=== PATIENT | female | born 1970 | race Caucasian/White ===

== ENCOUNTER 2023-09-19 22:49 | Emergency (ER) | payer MEDICAID, OTHER ==
[~2023-09-19] VITALS: Ht 165.1 cm; Wt 84.1 kg
[2023-09-19 22:56] VITALS: TEMP 97.5
[2023-09-19] MEDS ORDERED: LEVO137T2 PO (23:06)
[2023-09-19 23:47] LABS: HEMOGLOBIN 13.1 g/dL (12.0-16.0); LYMPHOCYTES # (AUTO) 1.9 K/uL (1.0-4.8); NEUTROPHILS # (AUTO) 6.3 K/uL (1.8-7.7); NEUTROPHILS % (AUTO) 68.3 % (40.0-70.0)
[2023-09-19 23:51] LABS: BASOPHILS % (AUTO) 0.9 % (0.0-2.0); EOSINOPHILS % (AUTO) 4.1 % (1.0-6.0); HEMATOCRIT 37.2 % (36-46); LYMPHOCYTES % (AUTO) 20.5 % (22.0-44.0); MEAN CORPUSCULAR HEMOGLOBIN 30.9 pg (26.0-34.0); MEAN CORPUSCULAR HGB CONC 35.2 G/dL (31.0-37.0); MEAN CORPUSCULAR VOLUME 88 fL (80-100); MONOCYTES # (AUTO) 0.6 K/uL (0.1-1.0); MONOCYTES % (AUTO) 6.2 % (2.0-9.0); PLATELET COUNT (AUTO) 329 K/uL (150-450); RED BLOOD CELL COUNT(AUTO) 4.24 MIL/uL (4.00-5.20); RED CELL DISTRIBUTION WIDTH 12.6 % (11.5-14.5); WHITE BLOOD COUNT (AUTO) 9.2 K/uL (4.5-11.0)
[2023-09-20 00:15] LABS: ANION GAP 6 mmol/L (8-16); CARBON DIOXIDE 27 mmol/L (22-29); CHLORIDE 106 mmol/L (98-107); CREATININE 0.72 mg/dL (0.60-1.30); GLOMERULAR FILTR. RATE CALC > 60 mL/min (>60); GLUCOSE,RANDOM 122 mg/dL (70-110); POTASSIUM 4.1 mmol/L (3.5-5.1); SODIUM SERUM 139 mmol/L (136-145); UREA NITROGEN, BLOOD 11 mg/dL (7-18)
[2023-09-20] MEDS ORDERED: FentaNYL CITRATE PF 100 MCG/2 ML VIAL IVP ONE (00:15)
[2023-09-20] MEDS ORDERED: ONDANSETRON HCL 4 MG/2 ML VIAL IVP ONE (00:15)
[2023-09-20] MEDS ORDERED: SODIUM CHLORIDE 0.9% 1,000 ML IV ONE (00:15)
[2023-09-20 00:21] LABS: ALANINE AMINOTRANSFERASE 330 U/L (12-78); ALBUMIN 3.5 g/dL (3.4-5.0); ALKALINE PHOSPHATASE 150 U/L (46-116); ASPARTATE AMINOTRANSFERASE 229 U/L (15-37); BILIRUBIN,TOTAL 0.5 mg/dL (0.1-1.0); LIPASE 31 U/L (16-77); TOTAL PROTEIN, SERUM 7.4 g/dL (6.4-8.2)
[2023-09-20 00:22] LABS: TROPONIN I-HIGH SENSITIVITY Less Than 4 ng/L (<51)
[2023-09-20 00:56] LABS: APPEARANCE,URINE CLEAR (CLEAR); BILIRUBIN,URINE NEGATIVE (NEGATIVE); COLOR,URINE LIGHT YELLOW (YELLOW); GLUCOSE, URINE (UA) NEGATIVE (NEGATIVE); KETONES,URINE NEGATIVE (NEGATIVE); LEUKOCYTE ESTERASE ,URINE NEGATIVE (NEGATIVE); NITRATE,URINE NEGATIVE (NEGATIVE); OCCULT BLOOD,URINE NEGATIVE (NEGATIVE); PROTEIN,URINE NEGATIVE (NEGATIVE); SPECIFIC GRAVITIY, URINE 1.015 (1.003-1.030); UROBILINOGEN,URINE <=1.0 mg/dL (<=1.0)
[2023-09-20] MEDS ORDERED: POLY17PO47 PO (04:58)
[2023-09-20] MEDS ORDERED: NA P133E4 PR (04:58)
[2023-09-20 05:00] VITALS: BP 130/79; PULSE 72; RESP 17
[2023-09-20] MEDS ORDERED: POLY238P PO (20:18)
== END 2023-09-20 06:05 | disposition home or self-care (01) ==
LOC: EMS 22:50
DX: K59.00 Constipation, unspecified (principal); E78.00 Pure hypercholesterolemia, unspecified; I10 Essential (primary) hypertension; E03.9 Hypothyroidism, unspecified; Z90.710 Acquired absence of both cervix and uterus; Z98.890 Other specified postprocedural states
CPT/HCPCS: 99285; 80053; 81003; 83690; 84484; 85025; 36415; 93005; 74176; 96374; 96361; 96375; J3010; J2405; J7030

== ENCOUNTER 2023-09-20 16:31 | Emergency (ER) | payer OTHER ==
[~2023-09-20] VITALS: Ht 165.1 cm; Wt 84.0 kg
[~2023-09-20 16:31] MED LIST: LEVO137T2 PO; NA P133E4 PR; POLY17PO47 PO
[2023-09-20 16:34] VITALS: TEMP 98.1
[2023-09-20 18:07] LABS: BASOPHILS % (AUTO) 0.3 % (0.0-2.0); EOSINOPHILS % (AUTO) 1.8 % (1.0-6.0); HEMATOCRIT 40.9 % (36-46); LYMPHOCYTES # (AUTO) 1.1 K/uL (1.0-4.8); LYMPHOCYTES % (AUTO) 8.1 % (22.0-44.0); MEAN CORPUSCULAR HEMOGLOBIN 30.7 pg (26.0-34.0); MEAN CORPUSCULAR HGB CONC 34.2 G/dL (31.0-37.0); MEAN CORPUSCULAR VOLUME 90 fL (80-100); MONOCYTES # (AUTO) 0.6 K/uL (0.1-1.0); MONOCYTES % (AUTO) 4.2 % (2.0-9.0); NEUTROPHILS # (AUTO) 11.7 K/uL (1.8-7.7); NEUTROPHILS % (AUTO) 85.6 % (40.0-70.0); PLATELET COUNT (AUTO) 320 K/uL (150-450); RED BLOOD CELL COUNT(AUTO) 4.56 MIL/uL (4.00-5.20); RED CELL DISTRIBUTION WIDTH 12.8 % (11.5-14.5); WHITE BLOOD COUNT (AUTO) 13.6 K/uL (4.5-11.0)
[2023-09-20] MEDS ORDERED: HYDROmorphone HCL 2 MG/ML SYRINGE IM ONE (18:15)
[2023-09-20] MEDS ORDERED: ONDANSETRON HCL 4 MG/2 ML VIAL IM ONE (18:15)
[2023-09-20 18:22] LABS: ANION GAP 10 mmol/L (8-16); CALCIUM, TOTAL 9.3 mg/dL (8.8-10.5); CARBON DIOXIDE 24 mmol/L (22-29); CHLORIDE 106 mmol/L (98-107); CREATININE 0.81 mg/dL (0.60-1.30); GLOMERULAR FILTR. RATE CALC > 60 mL/min (>60); GLUCOSE,RANDOM 110 mg/dL (70-110); POTASSIUM 3.9 mmol/L (3.5-5.1); SODIUM SERUM 140 mmol/L (136-145); UREA NITROGEN, BLOOD 9 mg/dL (7-18)
[2023-09-20 18:23] LABS: PLATELET MORPHOLOGY COMMENT LARGE PLTS PRESENT; RBC MORPHOLOGY COMMENT NORMAL RBC MORPH
[2023-09-20 18:27] LABS: TROPONIN I-HIGH SENSITIVITY Less Than 4 ng/L (<51)
[2023-09-20 18:28] LABS: ALANINE AMINOTRANSFERASE 299 U/L (12-78); ALBUMIN 3.5 g/dL (3.4-5.0); ALKALINE PHOSPHATASE 131 U/L (46-116); ASPARTATE AMINOTRANSFERASE 156 U/L (15-37); BILIRUBIN,TOTAL 0.5 mg/dL (0.1-1.0); LIPASE 27 U/L (16-77); TOTAL PROTEIN, SERUM 7.5 g/dL (6.4-8.2)
[2023-09-20] MEDS ORDERED: SODIUM PHOSPHATE,MONO-DIBASIC 133 ML ENEMA PR ONE (19:30)
[2023-09-20 20:13] VITALS: BP 146/70; PULSE 78; RESP 16
[2023-09-20] MEDS ORDERED: POLY238P PO (20:18)
== END 2023-09-20 20:30 | disposition home or self-care (01) ==
LOC: EMS 16:32
DX: R10.84 Generalized abdominal pain (principal); K59.00 Constipation, unspecified; K76.0 Fatty (change of) liver, not elsewhere classified; R79.89 Other specified abnormal findings of blood chemistry; E78.00 Pure hypercholesterolemia, unspecified; I10 Essential (primary) hypertension; E03.9 Hypothyroidism, unspecified; Z90.710 Acquired absence of both cervix and uterus; Z98.890 Other specified postprocedural states
CPT/HCPCS: 99284; 80053; 83690; 84484; 85025; 36415; 96372; J1170; J2405

== ENCOUNTER 2024-09-14 08:01 | Inpatient (IN) | payer SELFPAY ==
[~2024-09-14] VITALS: Ht 165.1 cm; Wt 90.3 kg
[~2024-09-14 08:01] MED LIST changes: +POLY238P PO
[2024-09-14] MEDS ORDERED: [UNRECOGNIZED DRUG - OTHER] PO (08:10)
[2024-09-14] MEDS ORDERED: CEFT1VIA65 IM (08:10)
[2024-09-14] MEDS ORDERED: 0.9% SODIUM CHLORIDE 10 ML SYRINGE IVP PRN (08:15)
[2024-09-14] MEDS ORDERED: IOHEXOL 350 MG/ML 100 ML VIAL ONE (08:40)
[2024-09-14] MEDS ORDERED: SODIUM CHLORIDE 0.9% 100 ML ONE (08:40)
[2024-09-14 08:43] LABS: BASOPHILS % (AUTO) 0.2 % (0.0-2.0); EOSINOPHILS % (AUTO) 1.5 % (1.0-6.0); HEMATOCRIT 39.5 % (36-46); LYMPHOCYTES # (AUTO) 0.6 K/uL (1.0-4.8); LYMPHOCYTES % (AUTO) 9.8 % (22.0-44.0); MEAN CORPUSCULAR HEMOGLOBIN 30.6 pg (26.0-34.0); MEAN CORPUSCULAR HGB CONC 35.5 G/dL (31.0-37.0); MEAN CORPUSCULAR VOLUME 86 fL (80-100); MONOCYTES # (AUTO) 0.6 K/uL (0.1-1.0); MONOCYTES % (AUTO) 9.3 % (2.0-9.0); NEUTROPHILS # (AUTO) 4.8 K/uL (1.8-7.7); NEUTROPHILS % (AUTO) 79.2 % (40.0-70.0); PLATELET COUNT (AUTO) 264 K/uL (150-450); RED BLOOD CELL COUNT(AUTO) 4.58 MIL/uL (4.00-5.20); RED CELL DISTRIBUTION WIDTH 12.5 % (11.5-14.5)
[2024-09-14 08:52] LABS: ANION GAP 11 mmol/L (8-16); CALCIUM, TOTAL 8.8 mg/dL (8.8-10.5); CARBON DIOXIDE 25 mmol/L (22-29); CHLORIDE 103 mmol/L (98-107); CREATININE 0.83 mg/dL (0.60-1.30); GLOMERULAR FILTR. RATE CALC > 60 mL/min (>60); GLUCOSE,RANDOM 119 mg/dL (70-110); POTASSIUM 3.7 mmol/L (3.5-5.1); SODIUM SERUM 139 mmol/L (136-145); UREA NITROGEN, BLOOD 14 mg/dL (7-18)
[2024-09-14] MEDS: ACETAMINOPHEN 1000 MG/ISO-OSM 100 ML IV ONE (08:57)
[2024-09-14] MEDS: KETOROLAC TROMETHAMINE 30 MG/ML VIAL IVP ONE (08:58)
[2024-09-14] MEDS: ONDANSETRON HCL 4 MG/2 ML VIAL IVP ONE (08:58)
[2024-09-14 08:59] LABS: LACTIC ACID 0.7 mmol/L (0.4-2.0)
[2024-09-14] MEDS: SODIUM CHLORIDE 0.9% 2,600 ML IV ONE (08:59)
[2024-09-14] MEDS: FAMOTIDINE 20 MG/2 ML VIAL IVP ONE (08:59)
[2024-09-14 09:08] LABS: TROPONIN I-HIGH SENSITIVITY Less Than 4 ng/L (<51)
[2024-09-14 09:17] LABS: ALANINE AMINOTRANSFERASE 225 U/L (12-78); ALBUMIN 3.5 g/dL (3.4-5.0); ALKALINE PHOSPHATASE 155 U/L (46-116); ASPARTATE AMINOTRANSFERASE 127 U/L (15-37); BILIRUBIN,TOTAL 0.5 mg/dL (0.1-1.0); CREATINE KINASE, TOTAL ONLY 102 U/L (26-192); LIPASE 28 U/L (16-77); TOTAL PROTEIN, SERUM 7.6 g/dL (6.4-8.2)
[2024-09-14 09:36] LABS: APPEARANCE,URINE CLEAR (CLEAR); BILIRUBIN,URINE NEGATIVE (NEGATIVE); COLOR,URINE YELLOW (YELLOW); GLUCOSE, URINE (UA) NEGATIVE (NEGATIVE); KETONES,URINE NEGATIVE (NEGATIVE); LEUKOCYTE ESTERASE ,URINE NEGATIVE (NEGATIVE); NITRATE,URINE NEGATIVE (NEGATIVE); OCCULT BLOOD,URINE SMALL (NEGATIVE); PH,URINE 5.5 (5.0-8.0); PROTEIN,URINE TRACE mg/dL (NEGATIVE); SPECIFIC GRAVITIY, URINE 1.027 (1.003-1.030); UROBILINOGEN,URINE <=1.0 mg/dL (<=1.0)
[2024-09-14] MEDS: CefTRIAXone 1 GM/DEXTROSE 50 ML IV ONE (10:24)
[2024-09-14 10:27] LABS: B-TYPE NATRIURETIC PEPTIDE 17 pg/mL (0-100)
[2024-09-14 10:30] LABS: RBC,URINE 0-2 /HPF (0-2)
[2024-09-14 10:31] LABS: BACTERIA,URINE Moderate /HPF (None Seen); WBC,URINE 0-2 /HPF (0-5)
[2024-09-14 10:32] LABS: SQUAMOUS EPITHELIAL CELL,UR Few /LPF (None Seen)
[2024-09-14] MEDS: AZITHROMYCIN 500 MG/NS 250 ML IV ONE (10:51)
[2024-09-14 11:04] LABS: COVID AG,FIA SOURCE NASAL SWAB
[2024-09-14 11:20] VITALS: BP 127/85; PULSE 80; RESP 17; TEMP 98.2; O2SAT 97
[2024-09-14 11:34] LABS: INFLUENZA TYPE B NEGATIVE FOR TYPE B (NEGATIVE); SARS-COV2 (COVID) ANTIGEN,FIA Negative (Negative)
[2024-09-14 11:42] LABS: INFLUENZA TYPE A POSITIVE FOR TYPE A (NEGATIVE)
[2024-09-14 15:03] VITALS: BP 104/59; PULSE 75; RESP 18; TEMP 97.9; O2SAT 97
[2024-09-14] MEDS ORDERED: ONDANSETRON HCL 4 MG/2 ML VIAL IVP PRN (16:15)
[2024-09-14] MEDS ORDERED: MORPHINE SULFATE 2 MG/ML SYRINGE IVP PRN (16:15)
[2024-09-14] MEDS ORDERED: HYDROCODONE/ACETAMINOPHEN 5-325 MG TABLET PO PRN (16:15)
[2024-09-14] MEDS ORDERED: MAGNESIUM HYDROXIDE SUSPENSION 30 ML UDCUP PO PRN (16:15)
[2024-09-14] MEDS ORDERED: ZOLPIDEM TARTRATE 5 MG TABLET PO PRN (16:15)
[2024-09-14] MEDS ORDERED: IPRATROPIUM BROMIDE 0.5 MG/2.5 ML NEB SOLUTION NEB PRN (16:15)
[2024-09-14] MEDS ORDERED: ALBUTEROL SULFATE 2.5 MG/0.5 ML NEB SOLUTION NEB PRN (16:15)
[2024-09-14] MEDS ORDERED: BISACODYL 10 MG RECTAL RECTAL SUPPOSITORY PR PRN (16:15)
[2024-09-14 20:29] VITALS: BP 130/76; PULSE 83; RESP 18; TEMP 97.6; O2SAT 97
[2024-09-14] MEDS: OSELTAMIVIR PHOSPHATE 75 MG CAPSULE PO SCH (20:34)
[2024-09-14 23:47] VITALS: BP 106/54; PULSE 67; RESP 18; TEMP 98; O2SAT 97
[2024-09-14] MEDS: HEPARIN SODIUM,PORCINE 5,000 UNITS/ML VIAL SQ SCH (23:51)
[2024-09-15 03:49] VITALS: BP 117/72; PULSE 71; RESP 18; TEMP 97.8; O2SAT 98
[2024-09-15] MEDS: LEVOTHYROXINE SODIUM 137 MCG TABLET PO SCH (06:24)
[2024-09-15 07:10] LABS: ALANINE AMINOTRANSFERASE 178 U/L (12-78); ALKALINE PHOSPHATASE 144 U/L (46-116); ANION GAP 9 mmol/L (8-16); ASPARTATE AMINOTRANSFERASE 100 U/L (15-37); BILIRUBIN,TOTAL 0.4 mg/dL (0.1-1.0); CALCIUM, TOTAL 8.6 mg/dL (8.8-10.5); CARBON DIOXIDE 27 mmol/L (22-29); CHLORIDE 105 mmol/L (98-107); CREATININE 0.69 mg/dL (0.60-1.30); GLOMERULAR FILTR. RATE CALC > 60 mL/min (>60); GLUCOSE,RANDOM 100 mg/dL (70-110); POTASSIUM 3.9 mmol/L (3.5-5.1); SODIUM SERUM 141 mmol/L (136-145); TOTAL PROTEIN, SERUM 6.8 g/dL (6.4-8.2); UREA NITROGEN, BLOOD 8 mg/dL (7-18)
[2024-09-15 07:23] LABS: BASOPHILS % (AUTO) 0.5 % (0.0-2.0); EOSINOPHILS % (AUTO) 7.3 % (1.0-6.0); HEMATOCRIT 38.6 % (36-46); LYMPHOCYTES # (AUTO) 1.2 K/uL (1.0-4.8); LYMPHOCYTES % (AUTO) 37.4 % (22.0-44.0); MEAN CORPUSCULAR HEMOGLOBIN 29.4 pg (26.0-34.0); MEAN CORPUSCULAR HGB CONC 33.7 G/dL (31.0-37.0); MEAN CORPUSCULAR VOLUME 87 fL (80-100); MONOCYTES # (AUTO) 0.4 K/uL (0.1-1.0); MONOCYTES % (AUTO) 13.2 % (2.0-9.0); NEUTROPHILS # (AUTO) 1.4 K/uL (1.8-7.7); NEUTROPHILS % (AUTO) 41.6 % (40.0-70.0); PLATELET COUNT (AUTO) 246 K/uL (150-450); RED BLOOD CELL COUNT(AUTO) 4.42 MIL/uL (4.00-5.20); RED CELL DISTRIBUTION WIDTH 12.6 % (11.5-14.5); WHITE BLOOD COUNT (AUTO) 3.3 K/uL (4.5-11.0)
[2024-09-15] MEDS: PANTOPRAZOLE SODIUM 40 MG DR TABLET PO SCH (08:25)
[2024-09-15] MEDS: CefTRIAXone 1 GM/DEXTROSE 50 ML IV SCH (08:25)
[2024-09-15] MEDS: ACETAMINOPHEN 325 MG TABLET PO PRN (08:30)
[2024-09-15] MEDS: AZITHROMYCIN 500 MG/NS 250 ML IV SCH (09:10)
[2024-09-15 09:18] VITALS: BP 113/55; PULSE 74; RESP 19; TEMP 98; O2SAT 98
[2024-09-15 11:19] VITALS: BP 114/74; PULSE 82; RESP 18; TEMP 97.8; O2SAT 95
[2024-09-15 15:29] VITALS: BP 123/80; PULSE 76; RESP 16; TEMP 87.5; O2SAT 95
[2024-09-15 16:50] LABS: AMPHET/METH SCREEN,URINE NEGATIVE (NEGATIVE); BARBITURATE SCREEN, URINE NEGATIVE (NEGATIVE); BENZODIAZEPINES SCREEN,URINE NEGATIVE (NEGATIVE); CANNABINOID SCREEN,URINE NEGATIVE (NEGATIVE); COCAINE SCREEN,URINE NEGATIVE (NEGATIVE); METHADONE SCREEN, URINE NEGATIVE (NEGATIVE); OPIATE SCREEN,URINE NEGATIVE (NEGATIVE); PHENCYCLIDINE SCREEN,URINE NEGATIVE (NEGATIVE)
[2024-09-15 16:51] LABS: ALCOHOL, URINE DRUG SCREEN NEGATIVE (NEGATIVE)
[2024-09-15 19:42] VITALS: BP 106/71; PULSE 75; RESP 18; TEMP 97.6; O2SAT 99
[2024-09-16 01:03] VITALS: BP 114/71; PULSE 71; RESP 17; TEMP 98.1; O2SAT 96
[2024-09-16 04:13] VITALS: BP 122/65; PULSE 66; RESP 18; TEMP 98; O2SAT 97
[2024-09-16 08:21] VITALS: BP 116/70; PULSE 72; RESP 18; TEMP 97.6; O2SAT 97
[2024-09-16] MEDS ORDERED: OSEL75CA45 PO (11:01)
[2024-09-16] MEDS ORDERED: BENZ-227 PO (11:02)
[2024-09-16 12:35] VITALS: BP 118/70; PULSE 83; RESP 18; TEMP 97.9; O2SAT 97
[2024-09-16 15:51] VITALS: BP 114/76; PULSE 81; RESP 17; TEMP 97.9; O2SAT 98
[2024-09-17 02:06] LABS: HEPATITIS A ANTIBODY IGM Negative (Negative); HEPATITIS B CORE IGM Negative (Negative); HEPATITIS C AB (EIA) Non Reactive (Non Reactive)
== END 2024-09-16 15:35 | disposition home or self-care (01) | DRG 194 ==
LOC: EMS 08:03 → EDH 10:50 → 5S 11:00
PROVIDERS: ADMIT Hospitalist; ATTEND Hospitalist
DX: J10.00 Influenza due to other identified influenza virus with unspecified type of pneumonia (principal); B17.9 Acute viral hepatitis, unspecified; E03.9 Hypothyroidism, unspecified; Z20.822 Contact with and (suspected) exposure to COVID-19; I10 Essential (primary) hypertension; E66.9 Obesity, unspecified; E78.00 Pure hypercholesterolemia, unspecified; Z68.33 Body mass index [BMI] 33.0-33.9, adult; Z90.710 Acquired absence of both cervix and uterus
CPT/HCPCS: 71045; 74177; 76705; 80048; 80053; 80074; 80076; 80307; 81001; 82550; 83605; 83690; 83880; 84145; 84443; 84484; 84703; 85025; 87040; 87086; 87804; 93005; 99285; J0131; J0456; J0696; J1644; J1885; J2405; J3490; J7030; J7050; 36415-L1; 36415-TC

== ENCOUNTER → 2025-07-13 | Emergency (ER) | payer OTHER ==
[~2025-07-13] VITALS: Ht 165.1 cm; Wt 86.0 kg
[~2025-07-13] MED LIST changes: +BENZ-227 PO; +LIDO-57 TP; -NA P133E4 PR; +OSEL75CA45 PO; -POLY17PO47 PO; -POLY238P PO
[2025-07-13] MEDS: LIDOCAINE 5% TRANSDERMAL PATCH TD ONE (12:50)
[2025-07-13] MEDS: KETOROLAC TROMETHAMINE 60 MG/2 ML VIAL IM ONE (12:50)
[2025-07-13 12:56] VITALS: BP_SYST 141; TEMP 97.7
[2025-07-13 13:08] VITALS: BP_DIAS 89; PULSE 89; RESP 18; O2SAT 99
== END | disposition still patient (30) ==
LOC: EMS 10:39
DX: M25.561 Pain in right knee (principal); E03.9 Hypothyroidism, unspecified; E78.00 Pure hypercholesterolemia, unspecified; I10 Essential (primary) hypertension; Z90.710 Acquired absence of both cervix and uterus; Z98.890 Other specified postprocedural states; X58.XXXA Exposure to other specified factors, initial encounter; Y93.89 Activity, other specified; Y92.89 Other specified places as the place of occurrence of the external cause; Y99.0 Civilian activity done for income or pay
CPT/HCPCS: 99283; 96372; J1885